=== PATIENT | female | born 1990 | race Caucasian/White ===

== ENCOUNTER 2017-03-23 18:30 | Emergency (ER) | payer OTHER ==
[2017-03-23 19:44] VITALS: BP 142/62
--- NOTE | 2017-03-23 20:18 | UC ---
Throat Pain/Nasal Gurdeep HPI - HPI Summary HPI Summary: ONE WEEK OF SINUS CONGESTION AND FACIAL PRESSURE, BILATERAL EAR PAIN FOR THREE DAYS. FEVER. - History of Current Complaint Chief Complaint: UCGeneralIllness Stated Complaint: SINUSES/EAR Time Seen by Provider: 03/23/17 19:40 Hx Obtained From: Patient, Family/Management Consultant Hx Last Menstrual Period: 03/03/17 Onset/Duration: Gradual Onset, Lasting Weeks, Still Present Severity: Moderate Cough: None Associated Signs & Symptoms: Positive: Hoarseness, Sinus Discomfort, Nasal Discharge, Fever - Epiglottits Risk Factors Epiglottis Risk Factors: Negative - Allergies/Home Medications Allergies/Adverse Reactions: Allergies Allergy/AdvReac Type Severity Reaction Status Date / Time seasonal Allergy Congestion Uncoded 03/23/17 19:44 Home Medications: Home Medications guaiFENesin ER TAB [Mucinex*] 600 mg PO BID 03/23/17 [History Confirmed 03/23/17 ] PMH/Surg Hx/FS Hx/Imm Hx Previously Healthy: Yes Cardiovascular History Of: Reports: Cardiac Disorders - PVC's- confirmed Respiratory History Of: Reports: Asthma - Surgical History Surgical History: Yes Surgery Procedure, Year, and Place: Arthoscopy of ankle - Family History Known Family History: Positive: Respiratory Disease - Social History Occupation: Disabled Lives: With Family Alcohol Use: Rare Substance Use Type: None Smoking Status (MU): Former Smoker Type: Cigarettes Amount Used/How Often: 4-5 cigarettes daily Length of Time of Smoking/Using Tobacco: 5 yrs Have You Smoked in the Last Year: Yes When Did the Patient Quit Smoking/Using Tobacco: March 2016 Review of Systems Constitutional: Fever, Fatigue Skin: Negative Eyes: Negative ENT: Ear Ache Respiratory: Cough Cardiovascular: Negative Gastrointestinal: Negative Genitourinary: Negative Motor: Negative Neurovascular: Negative Musculoskeletal: Negative Neurological: Negative Psychological: Negative All Other Systems Reviewed And Are Negative: Yes Physical Exam Triage Information Reviewed: Yes Appearance: Well-Appearing, No Pain Distress, Well-Nourished Vital Signs: Initial Vital Signs Temp 98.1 F 03/23/17 19:40 Pulse 93 03/23/17 19:40 Resp 18 03/23/17 19:40 BP 142/62 03/23/17 19:40 Pulse Ox 100 03/23/17 19:40 Vital Signs Reviewed: Yes Eye Exam: Normal ENT: Positive: Hearing grossly normal, Nasal congestion, TM bulging, TM dull Dental Exam: Normal Neck exam: Normal Neck: Positive: Supple, Nontender, No Lymphadenopathy Respiratory Exam: Normal Respiratory: Positive: Chest non-tender, Lungs clear, Normal breath sounds, No respiratory distress, No accessory muscle use Cardiovascular Exam: Normal Cardiovascular: Positive: RRR, No Murmur, Pulses Normal Abdominal Exam: Normal Musculoskeletal Exam: Normal Musculoskeletal: Positive: Strength Intact, ROM Intact, No Edema Neurological Exam: Normal Psychological Exam: Normal Psychological: Positive: Normal Response To Family Skin Exam: Normal Throat Pain/Nasal Course/Dx - Differential Dx/Diagnosis Differential Diagnosis/HQI/PQRI: Pharyngitis, Sinusitis, Tonsillitis, URI Provider Diagnoses: SINUSITIS Discharge - Discharge Plan Condition: Stable Disposition: HOME Prescriptions: Amoxicillin/Clavulanate TAB* [Augmentin TAB 875*] 875 mg PO BID #20 tab Benzonatate CAP* [Tessalon 100 MG CAP*] 100 mg PO TID PRN #15 cap PRN Reason: Cough Patient Education Materials: Sinusitis (ED) Referrals: Laurita Reyes MD [Primary Care Provider] -
== END 2017-03-23 20:17 | disposition home or self-care (01) ==
LOC: UCCORT 18:30
DX: J32.9 Chronic sinusitis, unspecified (principal); I49.3 Ventricular premature depolarization; J45.909 Unspecified asthma, uncomplicated; Z87.891 Personal history of nicotine dependence
CPT/HCPCS: 99212; G0463

== ENCOUNTER 2018-01-22 13:56 | Emergency (ER) | payer OTHER ==
--- NOTE | 2018-01-22 14:39 | UC ---
Throat Pain/Nasal Gurdeep HPI - HPI Summary HPI Summary: Pt presents with sore throat, sinus pain/pressure/congestion, and dry cough for 10 days. Yesterday had a fever of 100.4F and took ibuprofen with good relief. Denies SOB, chest pain, abdominal pain, n/v/d/c - History of Current Complaint Stated Complaint: RESPIRATORY, SINUS Time Seen by Provider: 01/22/18 14:39 Hx Obtained From: Patient Hx Last Menstrual Period: 03/03/17 Onset/Duration: Gradual Onset Severity: Mild Pain Intensity: 4 Pain Scale Used: 0-10 Numeric Cough: Nonproductive - Allergies/Home Medications Allergies/Adverse Reactions: Allergies Allergy/AdvReac Type Severity Reaction Status Date / Time seasonal Allergy Congestion Uncoded 01/22/18 14:44 PMH/Surg Hx/FS Hx/Imm Hx Previously Healthy: Yes Respiratory History: Asthma GI/ History: Gastroesophageal Reflux Psychological History: Anxiety, Depression - Surgical History Surgical History: Yes Surgery Procedure, Year, and Place: Arthoscopy of ankle - Family History Known Family History: Positive: Respiratory Disease - Social History Occupation: Employed Full-time Lives: With Family Alcohol Use: Rare Substance Use Type: None Smoking Status (MU): Former Smoker Type: Cigarettes Amount Used/How Often: 4-5 cigarettes daily Length of Time of Smoking/Using Tobacco: 5 yrs When Did the Patient Quit Smoking/Using Tobacco: March 2016 Review of Systems Constitutional: Fever Skin: Negative Eyes: Negative ENT: Nasal Discharge, Sinus Congestion, Sinus Pain/Tenderness Respiratory: Cough Cardiovascular: Negative Gastrointestinal: Negative Neurovascular: Negative Neurological: Negative Psychological: Negative All Other Systems Reviewed And Are Negative: Yes Physical Exam - Summary Physical Exam Summary: GENERAL: Obese. NAD. HEENT: NC/AT. Conjunctiva clear without inflammation or discharge. TMs intact , no bulging, erythema, or edema. Nasal mucosa mildly swollen and erythematous with clear discharge. TTP maxillary and frontal sinus. Posterior oropharynx without exudates, erythema, or tonsillar enlargement. Uvula midline. NECK: Supple without lymphadenopathy CHEST: CTAB. No r/r/w. No accessory muscle use. Breathing comfortably and in no distress. CV: RRR. Without m/r/g. Pulses intact. SKIN: No rash or erythema noted. NEURO: Alert. CN II-XII grossly intact. PSYCH: Age appropriate behavior. Triage Information Reviewed: Yes Throat Pain/Nasal Course/Dx - Course Course Of Treatment: Sinusitis - amoxicillin - Differential Dx/Diagnosis Provider Diagnoses: Sinusitis Discharge - Sign-Out/Discharge Documenting (check all that apply): Discharge - Discharge Plan Condition: Stable Disposition: HOME Prescriptions: Amoxicillin PO (*) [Amoxicillin 500 MG CAP*] 500 mg PO Q12H #20 cap Patient Education Materials: Sinusitis (ED) Referrals: Laurita Reyes MD [Primary Care Provider] - Additional Instructions: If you develop a fever, shortness of breath, chest pain, new or worsening symptoms - please call your PCP or go to the ED. Your blood pressure was high at todays visit. Please see your primary provider within 4 weeks for recheck and re-evaluation. - Billing Disposition and Condition Condition: STABLE Disposition: HOME
--- OUTSIDE RECORDS SUMMARY | 2018-01-22 14:42 | XMS REPORT ---
:1990 External Reference #:[id number] Author Organization [facility] Address [address], [address] [place] [address] Phone [phone] Care Team Providers Name Role Phone Carmen Hay DO Care Team Information Stallion Manager Unavailable Laurita Reyes MD Primary Care Physician Unavailable Payers Type Date Identification Numbers Payment Provider Subscriber Commercial Policy Number: [id number] [facility] Nemo Busch PayID: [id number] [address] [place] [address] Medicaid Policy Number: [id number] Medicaid Nemo Busch PayID: [id number] [address] [place] [address] Workers Compensation Onset: 2009 PayID: [id number] Emiliano Dhillon [address] [place] [address] Problems Date Description Provider Status Onset: 06/17/2015 Gastroesophageal reflux disease Yuliya Chapa M.D. Active Onset: 06/17/2015 Mild recurrent major depression Yuliya Chapa M.D. Active Onset: 06/17/2015 Obesity Yluiya Chapa M.D. Active Onset: 06/17/2015 Disorder of joint of ankle and/or Yuliya Chapa M.D. Active foot Onset: 06/17/2015 Extrinsic asthma without status Yuliya Chapa M.D. Active asthmaticus Onset: 05/13/2017 Allergic rhinitis Laurita Reyes MD Active Onset: 09/28/2017 Gallstone Nathanael Cantu MD,FACS Active Onset: 10/05/2017 Preoperative cardiovascular Neo Aaron M.D., Active examination FACC Onset: 10/05/2017 Morbid obesity Neo Aaron M.D., Active FACC Onset: 10/05/2017 Pre-excitation syndrome Neo Aaron M.D., Active FACC Onset: 06/17/2015 Breast lump Yuliya Chapa M.D. Inactive Inactive: 09/25/2017 Onset: 06/17/2015 Adult health examination Yuliya Chapa M.D. Inactive Inactive: 09/25/2017 Onset: 07/15/2015 Dysphagia Yuri Birch M.D. Inactive Inactive: 09/25/2017 Onset: 07/15/2015 Other fecal abnormalities Yuri Birch M.D. Inactive Inactive: 09/25/2017 Family History Date Family Member(s) Problem(s) Comments Father Unknown Mother PVC's First Brother Leukemia First Brother due to Heart Disease () - arrhythmias- from accident First Sister Heart Disease arrhythmias Grandfather Stroke Aunt Breast Cancer Aunt Leukemia Social History Type Date Description Comments Marital Status Single Lives With Sister Diet low carb Occupation Sales Retail Work Status Currently Working ADL's/IADL's Independent with all ADL's Cigarette Use Quit MARCH 2016 ETOH Use Denies alcohol use Smoking Patient does not smoke Recreational Drug Use Denies Drug Use Smoking Patient is a current smoker, smokes every day Daily Caffeine Current Caffeine User 4 cups daily Exercise Type/Frequency Exercises regularly Allergies, Adverse Reactions, Alerts Date Description Reaction Status Severity Comments 11/24/2009 NKDA active Medications Medication Date Status Form Strength Qnty SIG Indications Ordering Provider Prozac 07/29 Active Capsules 40mg 30cap take one Laurita /2016 s tab a day MD Amy Fluticasone 02/08 Active Suspension 50mcg/Act 9.900 spray 1-2 Laurita Propionate ml sprays in jackie Reyes MD nostril once every evening Albuterol Sulfate 00/ Active Inhaler a/d Unknown /0000 Ibuprofen 00 Active Tablets 800mg prn Unknown /0000 Famotidine Active Tablets 20mg take 1 Unknown /0000 tablet by mouth twice a day Reglan Active Tablets 10mg 30tab 1 tab by Laurita s mouth once Amy, a day as MD needed Vitamin D Active Tablets 5000Units 1 by mouth Unknown every day Lortab 10/26 Hx Tablets 5-325mg 20tab 1 tablet K80.20 Nathanael s as needed Alondra, - for pain ,FACS 11/14 every hours Prochlorperazine 09/21 Hx Tablets 5mg 30tab 1 tab by Laurita Maleate s mouth Amy, three MD times a day Hydrocodone-Aceta 09/21 Hx Tablets 5-325mg 12tab 1 tab Laurita minophen s every 8 Amy, - hours as 10/26 needed pain Augmentin 09/21 Hx Tablets 875-125mg 14tab 1 tab by Laurita s mouth Amy, - q12hrs for 09/28 Ortho Tri-Cyclen 05/13 Hx Tablets 0.18/0.21 168ta 1 tab by Laurita 5/0.25 bs mouth Amy, mg-25 mcg every day MD Garcia 01/18 Hx Capsules 20mg 30cap 1 by mouth Laurita s every day Amy, - 07/29 Prozac 12/24 Hx Capsules 40mg 30cap take one Tadeus E. s pill each Joseph, - day 01/18 Maalox Regular 07/15 Hx Suspension 200-200-2 1bott 20 K21.9 Yuri Strength /2014 0mg/5ML le milliliter Vatra, s by mouth M.D. every 2h as needed heartburn Pantoprazole 07/[address] 40mg 180ta 1 by mouth K21.9 Yuri Sodium /2014 bs twice a Vatra, day M.D. Prozac 06/25 Hx Capsules 20mg 60cap take 1 a Tadeus E. s pill Joseph, - bymouth 12/24 day Clonidine HCL 06/25 Hx Tablets 0.1mg 30tab 1 by mouth Tadeus E. s every day Joseph, at bedtime Chantix 06/25 Hx Tablets 0.5mg 30tab Take 1/2 a Tadeus E. s pill each Joseph, lorraine for 4 MD days then take 1/2 a pill twice a day there after Chantix 06/25 Hx Tablets 1mg 30tab take one Tadeus E. s pill each MD Joseph Omeprazole 06/[address] 40mg 30cap take 1 K21.9 s capsule by Sammi, - mouth M.D. 07/15 before eating Tetanus/Diphtheri 06/17 Hx Suspension 2-2LF/0.5 1unit 0.5 V70.0 Yuliya ML s milliliter Sammi, Toxoids-Adsorbed - s M.D. Adult 06/24 intramuscu lar once Sucralfate 06/17 Hx Tablets 1gm 112ta 1 by mouth K21.9 Yuliya bs four times Sammi, - a day M.D. 07/15 Nexium 00 Hx Unknown /0000 - 06/16 Sucralfate 00 Hx Tablets 1gm 1 tab by Unknown /0000 mouth qid as needed reflux Famotidine 00 Hx Tablets 20mg take 1 Unknown /0000 tablet by - mouth qday 07/15 Zofran Odt 00 Hx Tablets 4mg 1 sl every Unknown /0000 Dispers 6 hour as needed Immunizations CPT Code Status Date Vaccine Lot # [id number] Given 06/17/2015 Tdap injection [id number] Vital Signs Date Vital Result Comment 01/05/2018 BP Systolic 147 mmHg Nida 127/86 BP Diastolic 91 mmHg Nida 127/86 Heart Rate 76 /min Respiratory Rate 16 /min Height 71 inches 5'11" Weight 384.31 lb BMI (Body Mass Index) 53.6 kg/m2 BSA (Body Surface Area) 2.78 m2 Godfrey body weight in kilograms 70 O2 % BldC Oximetry 97 % 11/22/2017 BP Systolic Sitting Right Arm 129 mmHg BP Diastolic Sitting Right Arm 88 mmHg Heart Rate 72 /min Respiratory Rate 16 /min Height 71 inches 5'11" Weight 380.00 lb BMI (Body Mass Index) 53.0 kg/m2 BSA (Body Surface Area) 2.77 m2 Godfrey body weight in kilograms 70 11/14/2017 Height 71 inches 5'11" Weight 385.00 lb BMI (Body Mass Index) 53.7 kg/m2 BSA (Body Surface Area) 2.79 m2 Godfrey body weight in kilograms 70 10/26/2017 BP Systolic 132 mmHg BP Diastolic 88 mmHg Body Temperature 98.1 F Height 71 inches 5'11" Weight 385.00 lb BMI (Body Mass Index) 53.7 kg/m2 BSA (Body Surface Area) 2.79 m2 Godfrey body weight in kilograms 70 10/05/2017 BP Systolic Sitting Left Arm 122 mmHg BP Diastolic Sitting Left Arm 82 mmHg Heart Rate 83 /min Respiratory Rate 18 /min Height 71 inches 5'11" Weight 375.00 lb BMI (Body Mass Index) 52.3 kg/m2 BSA (Body Surface Area) 2.75 m2 Godfrey body weight in kilograms 70 09/28/2017 BP Systolic 128 mmHg BP Diastolic 88 mmHg Height 71 inches 5'11" Weight 383.00 lb BMI (Body Mass Index) 53.4 kg/m2 BSA (Body Surface Area) 2.78 m2 Godfrey body weight in kilograms 70 09/21/2017 BP Systolic Sitting Right Arm 134 mmHg BP Diastolic Sitting Right Arm 82 mmHg Body Temperature 97.4 F Heart Rate 86 /min Respiratory Rate 18 /min Height 71 inches 5'11" Weight 382.00 lb BMI (Body Mass Index) 53.3 kg/m2 BSA (Body Surface Area) 2.78 m2 Godfrey body weight in kilograms 70 O2 % BldC Oximetry 97 % 05/13/2017 BP Systolic Sitting Left Arm 124 mmHg BP Diastolic Sitting Left Arm 90 mmHg Body Temperature 96.8 F Heart Rate 66 /min Respiratory Rate 18 /min Height 71 inches 5'11" Weight 374.00 lb BMI (Body Mass Index) 52.2 kg/m2 BSA (Body Surface Area) 2.75 m2 Godfrey body weight in kilograms 70 O2 % BldC Oximetry 97 % ra 02/08/2017 BP Systolic Sitting Right Arm 130 mmHg thigh cuff. BP Diastolic Sitting Right Arm 96 mmHg thigh cuff. 02/08/2017 BP Systolic 128 mmHg BP Diastolic 98 mmHg Heart Rate 76 /min Respiratory Rate 16 /min Height 71 inches 5'11" Weight 372.00 lb BMI (Body Mass Index) 51.9 kg/m2 BSA (Body Surface Area) 2.74 m2 Godfrey body weight in kilograms 70 O2 % BldC Oximetry 96 % 07/20/2016 BP Systolic Sitting Right Arm 144 mmHg BP Diastolic Sitting Right Arm 88 mmHg Heart Rate 72 /min Respiratory Rate 16 /min Weight 350.00 lb 07/15/2015 BP Systolic 120 mmHg BP Diastolic 70 mmHg Heart Rate 72 /min Height 70 inches 5'10" Weight 353.00 lb BMI (Body Mass Index) 50.6 kg/m2 BSA (Body Surface Area) 2.66 m2 06/25/2015 BP Systolic 132 mmHg BP Diastolic 78 mmHg Heart Rate 91 /min Height 70 inches 5'10" Weight 338.00 lb BMI (Body Mass Index) 48.5 kg/m2 BSA (Body Surface Area) 2.61 m2 O2 % BldC Oximetry 96 % Ra 06/17/2015 BP Systolic 128 mmHg BP Diastolic 78 mmHg Heart Rate 90 /min Respiratory Rate 18 /min Height 70 inches 5'10" Weight 336.00 lb BMI (Body Mass Index) 48.2 kg/m2 BSA (Body Surface Area) 2.60 m2 O2 % BldC Oximetry 97 % 11/19/2009 Height 70 inches 5'10" Weight 300.00 lb BMI (Body Mass Index) 43.0 kg/m2 Height Percentile 97 % Weight Percentile >97th Results Test Date Test Result H/L Range Note Ua RFX Micro & Culture II 10/25/2017 Urine Color YELLOW Yellow 1 Urine Clarity CLEAR Clear 1 Urine Glucose - Dipstick NEGATIVE mg/dL Negative 1 Urine Bilirubin - Dipstick NEGATIVE Negative 1 Urine Ketone NEGATIVE mg/dL Negative 1 Urine Specific [place] >=1.030 1.010-1.030 1 Urine Blood NEGATIVE Negative 1 Urine PH 5.5 Low 6.5-7.5 1 Urine Protein - Dipstick NEGATIVE mg/dL Negative 1 Urine Urobilinogen - Dipstick 0.2 E.U./dL 0.2-1.0 1 Urine Nitrite - Dipstick NEGATIVE Negative 1 Urine Leuk Esterase TRACE Negative 1 Urine RBC 0-2 rbc/hpf 0-2 1 Urine WBC 0-2 wbc/hpf 0-7 1 Urine Epithelial Cells MANY /lpf None Seen 1, 2 Urine Uric Acid Crystals FEW None Seen 1 Urine Bacteria FEW None Seen 1 Urine Amorph Sediment VERY FEW Negative 1 Source: URINE, CLEAN CAT <SEE NOTE> 1, 3 CBS W/Automated Diff 10/25/2017 White Blood Count 8.8 K/uL 3.1-10.7 1 Red Blood Count 4.27 M/uL 3.90-5.40 1 Hemoglobin 13.6 gm/dL 11.6-15.8 1 Hematocrit 38.6 % 36.0-46.1 1 Mean Cell Volume 90.4 fl 80.9-99.0 1 Mean Corpuscular HGB 31.9 pg 25.9-32.7 1 Mean Corpuscular HGB Conc 35.2 g/dL High 30.8-34.3 1 Platelet Count 222 K/uL 155-360 1 Red Cell Distri Width SD 41.0 fl 3-47 1 Red Cell Distri Width %CV 12.7 % 11.7-14.4 1 Mean Platelet Volume 10.5 fL 8.9-12.4 1 Neut% 60.1 % 40.4-72.8 1 Lymph % 27.4 % 20.0-42.0 1 [place] % 9.7 % 4.3-13.2 1 Eo% 2.6 % 0.0-6.6 1 Bas% 0.2 % 0.0-1.1 1 Neut# 5.31 K/uL 1.8-7.0 1 Lymph # 2.42 K/uL 1.0-4.0 1 [place] # 0.86 K/uL 0.3-0.9 1 Eos # 0.23 K/uL 0.0-0.5 1 Baso # 0.02 K/uL 0.0-0.1 1 Comprehensive Metabolic Panel 10/25/2017 Glucose 87 mg/dL 74-106 1 BUN 12 mg/dL 7-18 1 Creatinine 0.8 mg/dL 0.6-1.3 1 Glom Filtration Rate, Estimate >60 mL/min >60 1 If >60 mL/min >60 1, 4 BUN/Creat 15.0 ratio 1 Sodium 143 mmol/L 136-145 1 Potassium 3.7 mmol/L 3.5-5.1 1 Chloride 106 mmol/L 98-107 1 Carbon Dioxide 28 mmol/L 21-32 1 Anion Gap 9 mEq/L 8-16 1 Calcium 8.8 mg/dL 8.5-10.1 1 Total Protein 7.1 g/dL 6.4-8.2 1 Albumin 3.6 g/dL 3.4-5.0 1 Globulin 3.5 g/dL 1.9-4.3 1 Alb/Glob 1.0 ratio 1 Bilirubin,Total 0.2 mg/dL 0.2-1.0 1 Sgot/Ast 14 U/L Low 15-37 1, 5 SGPT/Alt 21 U/L 12-78 1 Alkaline Phosphatase 78 U/L 45-117 1 Laboratory test finding 10/25/2017 Lipase 192 U/L 56-289 1 Laboratory test finding 10/06/2017 Urine HCG (Qualitative) NEGATIVE Negative 6, 7 Lactic Acid 10/04/2017 Lactic Acid 0.8 mmol/L 0.4-1.9 8 Lab Reflex >2.0 for Sepsis? N 8 CBS W/Automated Diff 10/04/2017 White Blood Count 6.7 K/uL 3.1-10.7 8 Red Blood Count 4.77 M/uL 3.90-5.40 8 Hemoglobin 15.1 gm/dL 11.6-15.8 8 Hematocrit 42.2 % 36.0-46.1 8 Mean Cell Volume 88.5 fl 80.9-99.0 8 Mean Corpuscular HGB 31.7 pg 25.9-32.7 8 Mean Corpuscular HGB Conc 35.8 g/dL High 30.8-34.3 8 Platelet Count 221 K/uL 150-400 8 Red Cell Distri Width SD 40.7 fl 3-47 8 Red Cell Distri Width %CV 12.8 % 11.7-14.4 8 Mean Platelet Volume 10.5 fL 8.9-12.4 8 Neut% 61.7 % 40.4-72.8 8 Lymph % 28.7 % 20.0-42.0 8 [place] % 8.0 % 4.3-13.2 8 Eo% 1.5 % 0.0-6.6 8 Bas% 0.1 % 0.0-1.1 8 Neut# 4.14 K/uL 1.8-7.0 8 Lymph # 1.93 K/uL 1.0-4.0 8 [place] # 0.54 K/uL 0.3-0.9 8 Eos # 0.10 K/uL 0.0-0.5 8 Baso # 0.01 K/uL 0.0-0.1 8 Comprehensive Metabolic Panel 10/04/2017 Glucose 89 mg/dL 74-106 8 BUN 14 mg/dL 7-18 8 Creatinine 1.0 mg/dL 0.6-1.3 8 Glom Filtration Rate, Estimate >60 mL/min >60 8 If >60 mL/min >60 8, 9 BUN/Creat 14.0 ratio 8 Sodium 137 mmol/L 136-145 8 Potassium 3.7 mmol/L 3.5-5.1 8 Chloride 102 mmol/L 98-107 8 Carbon Dioxide 27 mmol/L 21-32 8 Anion Gap 8 mEq/L 8-16 8 Calcium 9.1 mg/dL 8.5-10.1 8 Total Protein 8.1 g/dL 6.4-8.2 8 Albumin 4.0 g/dL 3.4-5.0 8 Globulin 4.1 g/dL 1.9-4.3 8 Alb/Glob 1.0 ratio 8 Bilirubin,Total 0.4 mg/dL 0.2-1.0 8 Sgot/Ast 16 U/L 15-37 8 SGPT/Alt 25 U/L 12-78 8 Alkaline Phosphatase 50 U/L 45-117 8 Laboratory test finding 10/04/2017 Lipase 124 U/L 56-289 8 Troponin-I < 0.015 ng/mL 8, 10 Comprehensive Metabolic Panel 09/29/2017 Glucose 90 mg/dL 74-106 11 BUN 11 mg/dL 7-18 11 Creatinine 0.8 mg/dL 0.6-1.3 11 Glom Filtration Rate, Estimate >60 mL/min >60 11 If >60 mL/min >60 11, 12 BUN/Creat 13.7 ratio 11 Sodium 140 mmol/L 136-145 11 Potassium 3.5 mmol/L 3.5-5.1 11 Chloride 105 mmol/L 98-107 11 Carbon Dioxide 28 mmol/L 21-32 11 Anion Gap 7 mEq/L Low 8-16 11 Calcium 8.7 mg/dL 8.5-10.1 11 Total Protein 7.5 g/dL 6.4-8.2 11 Albumin 3.7 g/dL 3.4-5.0 11 Globulin 3.8 g/dL 1.9-4.3 11 Alb/Glob 1.0 ratio 11 Bilirubin,Total 0.2 mg/dL 0.2-1.0 11 Sgot/Ast 23 U/L 15-37 11 SGPT/Alt 31 U/L 12-78 11 Alkaline Phosphatase 59 U/L 45-117 11 CBS W/Automated Diff 09/29/2017 White Blood Count 9.2 K/uL 3.1-10.7 11 Red Blood Count 4.26 M/uL 3.90-5.40 11 Hemoglobin 13.3 gm/dL 11.6-15.8 11 Hematocrit 38.3 % 36.0-46.1 11 Mean Cell Volume 89.9 fl 80.9-99.0 11 Mean Corpuscular HGB 31.2 pg 25.9-32.7 11 Mean Corpuscular HGB Conc 34.7 g/dL High 30.8-34.3 11 Platelet Count 239 K/uL 155-360 11 Red Cell Distri Width SD 40.3 fl 3-47 11 Red Cell Distri Width %CV 12.7 % 11.7-14.4 11 Mean Platelet Volume 10.4 fL 8.9-12.4 11 Neut% 62.8 % 40.4-72.8 11 Lymph % 29.0 % 20.0-42.0 11 [place] % 7.1 % 4.3-13.2 11 Eo% 1.0 % 0.0-6.6 11 Bas% 0.1 % 0.0-1.1 11 Neut# 5.78 K/uL 1.8-7.0 11 Lymph # 2.67 K/uL 1.0-4.0 11 [place] # 0.65 K/uL 0.3-0.9 11 Eos # 0.09 K/uL 0.0-0.5 11 Baso # 0.01 K/uL 0.0-0.1 11 Laboratory test 09/29/2017 Lipase 126 U/L 56-289 11 finding Blood Culture 09/29/2017 Blood Culture NO GROWTH: FINAL Aerobic <SEE NOTE> Blood Culture Anaerobic NO GROWTH: FINAL <SEE NOTE> Laboratory test finding 09/29/2017 C. Difficile Toxin B By NEGATIVE 11 PCR Lactic Acid 09/29/2017 Lactic Acid 1.1 mmol/L 0.4-1.9 11 Lab Reflex >2.0 for Sepsis? Y 11 Ua RFX Micro & Culture II 09/27/2017 Urine Color YELLOW Yellow 15 Urine Clarity CLEAR Clear 15 Urine Glucose - Dipstick NEGATIVE mg/dL Negative 15 Urine Bilirubin - Dipstick NEGATIVE Negative 15 Urine Ketone TRACE mg/dL High Negative 15 Urine Specific [place] 1.025 1.010-1.030 15 Urine Blood NEGATIVE Negative 15 Urine PH 6.5 6.5-7.5 15 Urine Protein - Dipstick TRACE mg/dL Negative 15 Urine Urobilinogen - Dipstick 1.0 E.U./dL 0.2-1.0 15 Urine Nitrite - Dipstick NEGATIVE Negative 15 Urine Leuk Esterase NEGATIVE Negative 15 Source: URINE, CLEAN CAT <SEE 15, 16 NOTE> Laboratory test finding 09/27/2017 Lipase 106 U/L 56-289 15 HCG,Serum (Qualitative) NEGATIVE (Negative) 15, 17 Comprehensive Metabolic Panel 09/27/2017 Glucose 103 mg/dL 74-106 15 BUN 12 mg/dL 7-18 15 Creatinine 0.8 mg/dL 0.6-1.3 15 Glom Filtration Rate, Estimate >60 mL/min >60 15 If >60 mL/min >60 15, 18 BUN/Creat 15.0 ratio 15 Sodium 141 mmol/L 136-145 15 Potassium 3.7 mmol/L 3.5-5.1 15 Chloride 106 mmol/L 98-107 15 Carbon Dioxide 27 mmol/L 21-32 15 Anion Gap 8 mEq/L 8-16 15 Calcium 8.6 mg/dL 8.5-10.1 15 Total Protein 6.9 g/dL 6.4-8.2 15 Albumin 3.5 g/dL 3.4-5.0 15 Globulin 3.4 g/dL 1.9-4.3 15 Alb/Glob 1.0 ratio 15 Bilirubin,Total 0.3 mg/dL 0.2-1.0 15 Sgot/Ast 21 U/L 15-37 15 SGPT/Alt 26 U/L 12-78 15 Alkaline Phosphatase 52 U/L 45-117 15 CBS W/Automated Diff 09/27/2017 White Blood Count 8.3 K/uL 3.1-10.7 15 Red Blood Count 4.13 M/uL 3.90-5.40 15 Hemoglobin 13.0 gm/dL 11.6-15.8 15 Hematocrit 36.9 % 36.0-46.1 15 Mean Cell Volume 89.3 fl 80.9-99.0 15 Mean Corpuscular HGB 31.5 pg 25.9-32.7 15 Mean Corpuscular HGB Conc 35.2 g/dL High 30.8-34.3 15 Platelet Count 233 K/uL 150-400 15 Red Cell Distri Width SD 39.8 fl 3-47 15 Red Cell Distri Width %CV 12.6 % 11.7-14.4 15 Mean Platelet Volume 10.1 fL 8.9-12.4 15 Neut% 65.6 % 40.4-72.8 15 Lymph % 25.9 % 20.0-42.0 15 [place] % 6.8 % 4.3-13.2 15 Eo% 1.6 % 0.0-6.6 15 Bas% 0.1 % 0.0-1.1 15 Neut# 5.47 K/uL 1.8-7.0 15 Lymph # 2.16 K/uL 1.0-4.0 15 [place] # 0.57 K/uL 0.3-0.9 15 Eos # 0.13 K/uL 0.0-0.5 15 Baso # 0.01 K/uL 0.0-0.1 15 Laboratory test finding 09/20/2017 Lipase 153 U/L 56-289 19 Comprehensive Metabolic Panel 09/20/2017 Glucose 124 mg/dL High 74-106 19 BUN 11 mg/dL 7-18 19 Creatinine 1.0 mg/dL 0.6-1.3 19 Glom Filtration Rate, Estimate >60 mL/min >60 19 If >60 mL/min >60 19, 20 BUN/Creat 11.0 ratio 19 Sodium 141 mmol/L 136-145 19 Potassium 3.4 mmol/L Low 3.5-5.1 19 Chloride 106 mmol/L 98-107 19 Carbon Dioxide 27 mmol/L 21-32 19 Anion Gap 8 mEq/L 8-16 19 Calcium 8.6 mg/dL 8.5-10.1 19 Total Protein 7.3 g/dL 6.4-8.2 19 Albumin 3.5 g/dL 3.4-5.0 19 Globulin 3.8 g/dL 1.9-4.3 19 Alb/Glob 0.9 ratio 19 Bilirubin,Total 0.4 mg/dL 0.2-1.0 19 Sgot/Ast 14 U/L Low 15-37 19, 21 SGPT/Alt 17 U/L 12-78 19 Alkaline Phosphatase 55 U/L 45-117 19 CBS W/Automated Diff 09/20/2017 White Blood Count 8.7 K/uL 3.1-10.7 19 Red Blood Count 4.24 M/uL 3.90-5.40 19 Hemoglobin 13.4 gm/dL 11.6-15.8 19 Hematocrit 38.3 % 36.0-46.1 19 Mean Cell Volume 90.3 fl 80.9-99.0 19 Mean Corpuscular HGB 31.6 pg 25.9-32.7 19 Mean Corpuscular HGB Conc 35.0 g/dL High 30.8-34.3 19 Platelet Count 257 K/uL 150-400 19 Red Cell Distri Width SD 40.9 fl 3-47 19 Red Cell Distri Width %CV 12.6 % 11.7-14.4 19 Mean Platelet Volume 9.6 fL 8.9-12.4 19 Neut% 66.9 % 40.4-72.8 19 Lymph % 24.5 % 20.0-42.0 19 [place] % 6.9 % 4.3-13.2 19 Eo% 1.6 % 0.0-6.6 19 Bas% 0.1 % 0.0-1.1 19 Neut# 5.80 K/uL 1.8-7.0 19 Lymph # 2.12 K/uL 1.0-4.0 19 [place] # 0.60 K/uL 0.3-0.9 19 Eos # 0.14 K/uL 0.0-0.5 19 Baso # 0.01 K/uL 0.0-0.1 19 Laboratory test finding 09/19/2017 Lipase 378 U/L High 56-289 22 CBS W/Automated Diff 09/19/2017 White Blood Count 7.9 K/uL 3.1-10.7 22 Red Blood Count 4.57 M/uL 3.90-5.40 22 Hemoglobin 14.1 gm/dL 11.6-15.8 22 Hematocrit 41.1 % 36.0-46.1 22 Mean Cell Volume 89.9 fl 80.9-99.0 22 Mean Corpuscular HGB 30.9 pg 25.9-32.7 22 Mean Corpuscular HGB Conc 34.3 g/dL 30.8-34.3 22 Platelet Count 262 K/uL 150-400 22 Red Cell Distri Width SD 41.0 fl 3-47 22 Red Cell Distri Width %CV 12.7 % 11.7-14.4 22 Mean Platelet Volume 9.9 fL 8.9-12.4 22 Neut% 64.1 % 40.4-72.8 22 Lymph % 27.7 % 20.0-42.0 22 [place] % 6.6 % 4.3-13.2 22 Eo% 1.3 % 0.0-6.6 22 Bas% 0.3 % 0.0-1.1 22 Neut# 5.04 K/uL 1.8-7.0 22 Lymph # 2.18 K/uL 1.0-4.0 22 [place] # 0.52 K/uL 0.3-0.9 22 Eos # 0.10 K/uL 0.0-0.5 22 Baso # 0.02 K/uL 0.0-0.1 22 Laboratory test finding 06/13/2015 D-Dimer, Quantitative 0.25 ug/mL 23 CBC W/Automated Diff 06/13/2015 White Blood Count 9.0 K/uL 3.1-10.7 Red Blood Count 4.61 M/uL 3.90-5.40 Hemoglobin 14.6 gm/dL 11.6-15.8 Hematocrit 41.1 % 36.0-46.1 Mean Cell Volume 89.2 fl 80.9-99.0 Mean Corpuscular HGB 31.7 pg 25.9-32.7 Mean Corpuscular HGB Conc 35.5 g/dL High 30.8-34.3 Platelet Count 246 K/uL 155-360 Red Cell Distri Width SD 41.3 fl 3-47 Red Cell Distri Width %CV 12.8 % 11.7-14.4 Mean Platelet Volume 11.0 fL 8.9-12.4 Neut% 62.0 % 40.4-72.8 Lymph % 29.0 % 17.0-46.1 [place] % 6.4 % 4.3-13.2 Eo% 2.4 % 0.0-6.6 Bas% 0.2 % 0.0-1.1 Neut# 5.58 K/uL 1.0-7.0 Lymph # 2.62 K/uL 1.8-7.0 [place] # 0.58 K/uL 0.3-0.9 Eos # 0.22 K/uL 0.0-0.5 Baso # 0.02 K/uL 0.0-0.1 Laboratory test finding 06/13/2015 Lipase 151 U/L 73-393 CK 101 U/L 26-192 Troponin-I < 0.015 ng/mL 24 HCG,Serum (Qualitative) NEGATIVE (Negative) Basic Metabolic Panel 06/13/2015 Glucose 112 mg/dL High 74-106 BUN 10 mg/dL 7-18 Creatinine 0.9 mg/dL 0.6-1.3 Glom Filtration Rate, Estimate >60 mL/min >60 If >60 mL/min >60 25 BUN/Creat 11.1 ratio Sodium 140 mmol/L 136-145 Potassium 3.6 mmol/L 3.5-5.1 Chloride 105 mmol/L 98-107 Carbon Dioxide 25 mmol/L 21-32 Anion Gap 10 mEq/L 8-16 Calcium 9.4 mg/dL 8.5-10.1 Liver Function Tests 06/13/2015 Total Protein 7.6 g/dL 6.4-8.2 Albumin 3.7 g/dL 3.4-5.0 Globulin 3.9 g/dL 1.9-4.3 Alb/Glob 0.9 ratio Bilirubin,Total 0.4 mg/dL 0.2-1.0 Bilirubin,Direct 0.1 mg/dL 0.0-0.2 Bilirubin,Indirect 0.3 mg/dL 0.0-0.9 Sgot/Ast 18 U/L 15-37 SGPT/Alt 23 U/L 12-78 Alkaline Phosphatase 58 U/L 45-117 Urine Screen 06/13/2015 Urine Color YELLOW Yellow Urine Clarity CLEAR Clear Urine Glucose - Dipstick NEGATIVE mg/dL Negative Urine Bilirubin - Dipstick NEGATIVE Negative Urine Ketone NEGATIVE mg/dL Negative Urine Specific [place] 1.010 1.010-1.030 Urine Blood NEGATIVE Negative Urine PH 6.0 Low 6.5-7.5 Urine Protein - Dipstick NEGATIVE mg/dL Negative Urine Urobilinogen - Dipstick 0.2 E.U./dL 0.2-1.0 Urine Nitrite - Dipstick NEGATIVE Negative Urine Leuk Esterase NEGATIVE Negative 1 POST OP PROBLEMS GALL BLADDER REMOVAL 2 POSSIBLE UROGENITAL CONTAMINATION. 3 URINE, CLEAN CATCH 4 Note: Persistent reduction for 3 months or more in an eGFR <60 mL/min/1.73 m2 defines CKD. Patients with eGFR values >/=60 mL/min/1.73 m2 may also have CKD if evidence of persistent proteinuria is present. The original MDRD equation for estimated GFR is not valid for patients less than 18 years of age. Additional information may be found at www.kdoqi.org. 5 Values below the stated reference ranges of AST and ALT can be seen in normal populations. Clinical correlation is suggested. 6 CONSULT 09/30/17 7 FIRST MORNING SPECIMENS GENERALLY CONTAIN THE HIGHEST CONCENTRATION OF HCG AND ARE RECOMMENDED FOR EARLY DETECTION OF . Method: Quidel QuickVue One-Step Immunoassay 8 GALL STONES? 9 Note: Persistent reduction for 3 months or more in an eGFR <60 mL/min/1.73 m2 defines CKD. Patients with eGFR values >/=60 mL/min/1.73 m2 may also have CKD if evidence of persistent proteinuria is present. The original MDRD equation for estimated GFR is not valid for patients less than 18 years of age. Additional information may be found at [email or web address]. 10 0.0 - 0.045 ng/mL: Normal 0.046 - 0.5 ng/mL: Suggestive 0.6 - 1.5 ng/mL: Consistent 11 GALL STONE IS BLOCKING 12 Note: Persistent reduction for 3 months or more in an eGFR <60 mL/min/1.73 m2 defines CKD. Patients with eGFR values >/=60 mL/min/1.73 m2 may also have CKD if evidence of persistent proteinuria is present. The original MDRD equation for estimated GFR is not valid for patients less than 18 years of age. Additional information may be found at [email or web address]. 13 NO GROWTH: FINAL REPORT 14 NO GROWTH: FINAL REPORT 15 DEHYDRATION, GALL STONE ISSUES 16 URINE, CLEAN CATCH 17 Method: [employer] One-Step Immunoassay 18 Note: Persistent reduction for 3 months or more in an eGFR <60 mL/min/1.73 m2 defines CKD. Patients with eGFR values >/=60 mL/min/1.73 m2 may also have CKD if evidence of persistent proteinuria is present. The original MDRD equation for estimated GFR is not valid for patients less than 18 years of age. Additional information may be found at [email or web address]. 19 ABD PAIN 20 Note: Persistent reduction for 3 months or more in an eGFR <60 mL/min/1.73 m2 defines CKD. Patients with eGFR values >/=60 mL/min/1.73 m2 may also have CKD if evidence of persistent proteinuria is present. The original MDRD equation for estimated GFR is not valid for patients less than 18 years of age. Additional information may be found at [email or web address]. 21 Values below the stated reference ranges of AST and ALT can be seen in normal populations. Clinical correlation is suggested. 22 ABD PAIN, NAUSEA, COLD SYMPTOMS 23 <=0.49 ug/mL - Low likelihood of DIC, DVT or Pulmonary Embolism >0.49 ug/mL - Additional testing should be done to rule out DIC, DVT, or Pulmonary embolism as clinically indicated. ([facility] has established a 97.89% negative predictive value for thrombotic disease when a cutoff value of 0.5 ug/mL is used.) 24 0.0 - 0.045 ng/mL: Normal 0.046 - 0.5 ng/mL: Suggestive 0.6 - 1.5 ng/mL: Consistent 25 Note: Persistent reduction for 3 months or more in an eGFR <60 mL/min/1.73 m2 defines CKD. Patients with eGFR values >/=60 mL/min/1.73 m2 may also have CKD if evidence of persistent proteinuria is present. The original MDRD equation for estimated GFR is not valid for patients less than 18 years of age. Additional information may be found at www.kdoqi.org. Procedures Date CPT Code Description Status 10/06/2017 53768 Cholecystectomy with cholangiography Completed 10/05/2017 23683 EKG-Tracing And Report Completed 07/20/2016 39990 EKG-Tracing And Report Completed 02/13/2010 36260 xray spine cervical min 4 views Completed 11/19/2009 89427 Radiology, Wrist Complete Completed Encounters Type Date Location Provider CPT E/M Dx Office Visit 11/22/2017 10:40a [place] [address] E66.01 M24.671 Z48.815 Office Visit 10/05/2017 2:50p Cardiology Office Neo Aaron, 67209 Z01.810 Romero, [facility] I45.6 E66.01 Office Visit 09/28/2017 2:45p Surgical Office Nathanael Cantu, 86323 K80.20 MD,FACS Office Visit 09/21/2017 3:40p [place] [address] K80.20 R03.0 N92.4 E66.01 J01.90 Office Visit 05/13/2017 8:40a [place] [address] F33.0 R03.0 N92.4 J30.9 M67.874 Office Visit 02/08/2017 8:40a [place] [address] F33.0 E66.9 R03.0 J30.9 J45.20 Office Visit 07/20/2016 1:30p [place] [address] Z01.810 I45.6 G47.33 Office Visit 07/15/2015 8:20a CITLALY Birch M.D. 56462 R19.5 R13.10 K21.9 E66.9 Office Visit 06/25/2015 1:10p [place] [address] 296.31 309.81 Office Visit 06/17/2015 9:00a Primary Care Office Yuliya Chapa M.D. 72429 530.81 296.31 611.72 278.00 716.87 493.00 V70.0 Office Visit 03/13/2010 11:15a Orthopaedic Office Romero Cho M.D., 83587 840.0 FACS 726.11 842.19 842.00 Office Visit 02/13/2010 9:30a Orthopaedic Office Romero Cho, 18978 719.41 Romero, FACS 719.42 Office Visit 01/07/2010 10:30a Orthopaedic Office Romero Cho 21039 831.04 Romero, FACS Office Visit 11/26/2009 9:30a Orthopaedic Office Romero Cho 30391 831.04 MJ Luis, FACS 726.90 842.00 Office Visit 11/19/2009 9:45a Orthopaedic Office Romero RevelesJackelin Roromatt, 08636 842.00 MJ Luis, FACS 840.9 831.04 923.00 Plan of Care Future Appointment(s):05/24/2018 10:00 am - Laurita Reyes MD at [facility] Xsuwze1401/05/2018 - Laurita Reyes, MDR10.811 Right upper quadrant abdominal tendernessNew Labs:Liver Function TestsLipaseUa RFX Micro & Culture IIUrine CultureComments:-check LFTs, lipase-CT scan of Abd to rule out bile duct stone, pancreatitis, Diverticulitis-May need GI workup-Incisions well healed-this pain is different than the post op incision pain she had -Check UA, urine culture
[2018-01-22 14:52] VITALS: BP 157/79
== END 2018-01-22 15:01 | disposition home or self-care (01) ==
LOC: UCCORT 13:56
DX: J32.9 Chronic sinusitis, unspecified (principal); Z87.891 Personal history of nicotine dependence
CPT/HCPCS: 99212; G0463

== ENCOUNTER 2019-09-17 09:04 | Emergency (ER) | payer OTHER ==
--- NOTE | 2019-09-17 10:12 | UC ---
Skin Complaint HPI - HPI Summary HPI Summary: 29-year-old female who has a history of very mild facial acne however she has started on testosterone treatments which have cystic acne as a side effect. She started experiencing a development of what she thought was a pimple and she tried to squeeze it last evening and today she has some left-sided facial pain and swelling. - History of Current Complaint Chief Complaint: UCSkin Time Seen by Provider: 09/17/19 09:58 Stated Complaint: SKIN CONCERN-FACE Hx Obtained From: Patient Hx Last Menstrual Period: 09/05/19 ?: No Onset/Duration: Gradual Onset Skin Exposure Onset/Duration: Hours Ago Timing: Constant Onset Severity: Mild Current Severity: Moderate Pain Intensity: 6 Location: Other - Left facial cheek. Character: Swelling Aggravating Factor(s): Touch Alleviating Factor(s): Nothing Associated Signs & Symptoms: Positive: Tenderness - Allergy/Home Medications Allergies/Adverse Reactions: Allergies Allergy/AdvReac Type Severity Reaction Status Date / Time seasonal Allergy Congestion Uncoded 09/17/19 09:58 Home Medications: Home Medications Metoclopramide HCl [Reglan] 5 mg PO DAILY PRN 09/17/19 [History Confirmed ] Omeprazole (Nf) [Prilosec (NF)] 40 mg PO DAILY 09/17/19 [History Confirmed 09/17] Testosterone Propionate 0.25 ml IM WEEKLY 09/17/19 [History Confirmed 09/17/19] PMH/Surg Hx/FS Hx/Imm Hx Previously Healthy: Yes Cardiovascular History: Other - PVC'S Respiratory History: Asthma - Surgical History Surgical History: Yes Surgery Procedure, Year, and Place: Arthoscopy of ankle, gallbladder removal- 2017 - Family History Known Family History: Positive: Respiratory Disease - Social History Lives: With Family Alcohol Use: Rare Substance Use Type: None Smoking Status (MU): Former Smoker Type: Cigarettes Amount Used/How Often: 4-5 cigarettes daily Length of Time of Smoking/Using Tobacco: 5 yrs Have You Smoked in the Last Year: Yes When Did the Patient Quit Smoking/Using Tobacco: March 2016 Review of Systems All Other Systems Reviewed And Are Negative: Yes Skin: Positive: Other - Patient has mild facial acne anyways however as a result of testosterone treatments she has developed some cystic acne. Is Patient Immunocompromised?: No Physical Exam Triage Information Reviewed: Yes Appearance: Well-Appearing, No Pain Distress, Well-Nourished Vital Signs: Initial Vital Signs Temp 98.1 F 09/17/19 09:52 Pulse 91 09/17/19 09:52 Resp 16 09/17/19 09:52 BP 136/77 09/17/19 09:52 Pulse Ox 98 09/17/19 09:52 Vital Signs Reviewed: Yes Eyes: Positive: Conjunctiva Clear ENT: Positive: Pharynx normal, TMs normal, Uvula midline Neck: Positive: Supple, Nontender, No Lymphadenopathy Respiratory: Positive: Lungs clear, Normal breath sounds, No respiratory distress, No accessory muscle use Cardiovascular: Positive: RRR, No Murmur, Pulses Normal, Brisk Capillary Refill Skin: Positive: Other - Patient has some mild facial acne with 2 areas of more severe acne. She has mild left facial cheek swelling but the erythema is only around the area of acne in which she tried to squeeze and express unsuccessfully. Course/Dx - Course Course Of Treatment: I advised patient not to try and squeeze any papules that develop. I'm giving her Augmentin 875 g by mouth twice a day 10 days. She is to deathly follow up either with her primary care provider or [facility] if no improvement this week however if worsening symptoms in the next 24 hours with increased facial swelling, fever and chills or unable keep medicine down she is to go to the emergency room for further treatment. - Diagnoses Provider Diagnosis: Cellulitis, face Discharge ED - Sign-Out/Discharge Documenting (check all that apply): Patient Departure All imaging exams completed and their final reports reviewed: No Studies - Discharge Plan Condition: Fair Disposition: HOME Prescriptions: Amoxicillin/Clavulanate TAB* [Augmentin TAB 875*] 875 mg PO BID 10 Days #20 tab Patient Education Materials: Cellulitis (DC) Referrals: Eda Pritchard CNM [Primary Care Provider] - [facility] [Outside] Additional Instructions: Increase fluids, take Tylenol every 4 hours and Motrin every 8 hours for pain. Take the Augmentin with food. Definite follow up at [facility] if you have no improvement or worsening symptoms over the next 4 or 5 days. - Billing Disposition and Condition Condition: FAIR Disposition: Home - Attestation Statements Provider Attestation: I was available for consult. This patient was seen by the LUCIANA. The patient was not presented to, seen by, or examined by me. -Mary Lou
[2019-09-17 10:22] VITALS: BP 136/77
== END 2019-09-17 10:19 | disposition home or self-care (01) ==
LOC: UCCORT 09:04
DX: L03.211 Cellulitis of face (principal); J45.909 Unspecified asthma, uncomplicated; Z91.09 Other allergy status, other than to drugs and biological substances; Z87.891 Personal history of nicotine dependence
CPT/HCPCS: 99212; G0463

== ENCOUNTER 2020-01-02 14:21 | Emergency (ER) | payer OTHER ==
--- OUTSIDE RECORDS SUMMARY | 2020-01-02 15:04 | XMS REPORT | Summary of Care ---
:1990 Author Organization [facility] Address [address] [place] [address] Care Team Providers Name Role Phone Eda Pritchard [facility] Primary Care Provider Reason for Referral Diagnostic Radiology (Routine) Status Reason Specialty Diagnoses / Procedures Referred By Contact Referred To Contact Open Radiology Diagnoses Chronic pain of left ankle Posterior tibial tendinitis of left lower extremity Jw Ahmadi Procedures MR Extremity Lower Joint without Contrast Left Joint, Ankle MD Rafael [address] [place] [address] Email: [email or web address] Reason for Visit Reason Comments Follow-up increased left ankle pain, ROM limited, not able to weight bear Encounter Details Date Type Department Care Team Description 12/14/2019 Office Visit [facility] OrthopedicsDaiana, Chronic pain of left ankle (Primary Dx); LLP Jw Hall MD Posterior tibial tendinitis of left lower extremity [address] [place], [place] [address] [id number] [place], [place] [phone] [address] [phone] Allergies Active Allergy Reactions Severity Noted Date Comments Propofol 07/16/2019 documented as of this encounter (statuses as of 12/24/2019) Medications Medication Sig Dispensed Refills Start End Status Date Date albuterol Inhale 2 puffs 0 Active (PROVENTIL into the lungs HFA;VENTOLIN HFA) every 4 (four) 108 (90 BASE) hours as needed MCG/ACT inhaler for Wheezing. ibuprofen Take 200 mg by 0 Active (ADVIL,MOTRIN) 200 mouth as needed MG tablet for Pain metoclopramide TK 1 T PO QD 0 09/28/20 Active (REGLAN) 10 MG 17 tablet fluoxetine (PROZAC) TK 1 C PO QD 5 09/26/20 Active 40 MG capsule 17 Testosterone INJECT 0.25 0 11/26/19 Active Cypionate 200 MG/ML MILLILITERS 20 Intramuscular INTRAMUSCULARLY Solution ONCE WEEKLY (DEPOTESTOTERONE CYPIONATE) Omeprazole 20 MG 0 Active Oral Tablet Delayed Release Disintegrating (EQ OMEPRAZOLE) Levocetirizine 0 Active Dihydrochloride 5 MG Oral Tablet (XYZAL) Glucosamine Sulfate 0 Active 500 MG Oral Tablet Flax Oil-Fish 0 Active Oil-Borage Oil Oral Capsule Vitamin D 0 08/10/20 Active (Ergocalciferol) 19 1.25 MG (07668 UT) Oral Capsule (ERGOCALCIFEROL) Cyclobenzaprine HCl TK 1 T PO TID PRF 0 12/20/19 Active 5 MG Oral Tablet MUSCLE SPASMS 19 (FLEXERIL) fluticasone SHAKE LQ AND U 1 1 02/09/20 Discontinued (FLONASE) 50 TO 2 SPRAYS IEN 17 020 (Formulary MCG/ACT nasal spray QPM change) HYDROcodone-acetami 0 10/06/20 Discontinued nophen (LORTAB) 17 020 (Formulary 5-325 MG per tablet change) documented as of this encounter (statuses as of 12/24/2019) Active Problems Problem Noted Date Left ankle pain 02/25/2016 Posterior tibial tendonitis 02/25/2016 documented as of this encounter (statuses as of 12/24/2019) Social History Tobacco Use Types Packs/Day Years Used Date Former Smoker 0.5 Quit: 08/27/2015 Smokeless Tobacco: Never Used Comments: Vape Alcohol Use Drinks/Week oz/Week Comments Yes rarely Sex Assigned at Date Recorded Not on file Job Start Date Occupation Industry Not on file Not on file Not on file Travel History Travel Start Travel End No recent travel history available. documented as of this encounter Last Filed Vital Signs Not on filedocumented in this encounter Patient Instructions Patient InstructionsSt Dominga Nunn LPN - 12/14/2019 2:20 PM ESTThe patient is instructed to call the office with any question/concerns or if symptoms worsen. documented in this encounter Progress Notes Jw Ahmadi MD - 12/14/2019 2:20 PM EST Chief Complaint: Chief Complaint Patient presents with Follow-up increased left ankle pain, ROM limited, not able to weight bear History of Present Illness: Nemo Busch "Jeff" Returns for follow-up. I have not seen him in a couple of years. He is status post posterior tibial tendon debridement, and resection of a prominent osteophyte off the tibia. He continues to complain of pain mostly medial. The pain is worsenedwith any activity. It has recently gotten worse. Has failed to respond to use of the orthotics, aswell as topical treatments. The patient's past MEDICAL/SURGICAL/SOCIAL history have been reviewed, with pertinent changes documented in the chart. ROS: Pertinent positives as above in the HPI, all other systems negative. Physical Exam: There were no vitals taken for this visit. General: AAOx3, NAD Left Foot/Ankle: The ankle appears well aligned. Moderate pes planus noted. Positive tendernessover the posterior tibial tendon. 4-5 inversion strength. Imaging: Weightbearing radiographs were reviewed with the patient in clinic today on the desktop computer. Findings reveal Pes planus. No changes compared to prior films. Assessment: 1. Chronic left medial ankle pain, with pes planus 2. Status post posterior tibial tendon debridement Plan: Jeff is struggling substantially. We discussed treatment options. I would like to get further information, prior to proceeding with any further treatment. I think that an MRI would best, given the likely soft tissue nature. Follow-Up: After MRI Xrays next visit: None Orders Placed This Encounter XR Foot 3 or More Views Left XR Ankle 2 Views Left MR Extremity Lower Joint without Contrast Left Joint, Ankle CC: Eda Pritchard CNM This document was dictated using Yext software. A reasonable attempt at proof reading has been made to minimize errors. Please call our office if you have any questions. documented in this encounter Plan of Treatment Name Type Priority Associated Diagnoses Order Schedule MR Extremity Lower Imaging Routine Chronic pain of left Expected: 2019, Joint without Contrast ankle Expires: 03/13/2021 Left Joint, Ankle Posterior tibial tendinitis of left lower extremity Health Maintenance Due Date Last Done Comments MMR Vaccines (1 of 1 - Standard 1992 series) Varicella Vaccines (1 of 2 - 1992 2-dose childhood series) DTaP,Tdap,and Td Vaccines (1 - 1998 Tdap) HIV Screening 2004 Cervical Cancer Screening 3 years 2012 Influenza Vaccine 07/31/2019 Pneumococcal Vaccine: 65+ Years (1 2056 of 2 - PCV13) HIB Vaccines Aged Out No longer eligible based on patient's age to complete this topic Hepatitis A Vaccines Aged Out No longer eligible based on patient's age to complete this topic Hepatitis B Vaccines Aged Out No longer eligible based on patient's age to complete this topic IPV Vaccines Aged Out No longer eligible based on patient's age to complete this topic Pneumococcal Vaccine: Pediatrics Aged Out No longer eligible based on (0 to 5 Years) and At-Risk patient's age to complete this Patients (6 to 64 Years) topic documented as of this encounter Implants Implanted Type Area [facility] Device Shelf Model / Identifier Expiration Date Serial / Lot [employer]i Kimball #0 [id number] - [id number] Left: Ankle ARTHREX 04/29/2017 [id number] / Implanted: Qty: 1 on 08/24/2016 by Jw Ahmadi MD at OR / [id number] documented as of this encounter Results XR Ankle 2 Views Left (12/14/2019 2:56 PM EST) Specimen Impressions Performed At IMPRESSION: Slight lucency rounded in appearance projected over the [facility] dome of the talus laterally which may represent an osteochondral defect. This is slightly more prominent than on the previous exam. Otherwise I see no acute osseous abnormality and no other significant change from 07/15/2017. If clinically indicated, MRI examination may help to further evaluate. Narrative Performed At Left ankle, left foot [facility] INDICATION: Pain FINDINGS: Frontal and internal oblique view of the left ankle was obtained. Along with 3 views of the left foot. Examination of the left ankle again demonstrates fixation device involving the medial malleolus unchanged. There is very minimal cortical thickening involving the medial malleolus medially which was present on the prior study. The ankle mortise appears intact. There is a small lucency projected over the dome of the talus laterally which may represent a small osteochondral defect. This appears to have been present on the prior study although slightly more prominent. There is soft tissue prominence about the ankle. There is mild amount of ankle joint fluid present. There is mild arthritic change involving the talonavicular joint unchanged. The remainder of the examination is unremarkable. Procedure Note Interface, Received Via flipClass - 12/15/2019 9:07 AM EST Left ankle, left foot INDICATION: Pain FINDINGS: Frontal and internal oblique view of the left ankle was obtained. Along with 3 views of the left foot. Examination of the left ankle again demonstrates fixation device involving the medial malleolus unchanged. There is very minimal cortical thickening involving the medial malleolus medially which was present on the prior study. The ankle mortise appears intact. There is a small lucency projected over the dome of the talus laterally which may represent a small osteochondral defect. This appears to have been present on the prior study although slightly more prominent. There is soft tissue prominence about the ankle. There is mild amount of ankle joint fluid present. There is mild arthritic change involving the talonavicular joint unchanged. The remainder of the examination is unremarkable. IMPRESSION: Slight lucency rounded in appearance projected over the dome of the talus laterally which may represent an osteochondral defect. This is slightly more prominent than on the previous exam. Otherwise I see no acute osseous abnormality and no other significant change from 07/15/2017. If clinically indicated, MRI examination may help to further evaluate. Performing Organization Address City/State/Zipcode Phone Number [facility] [address] [place] [address] XR Foot 3 or More Views Left (12/14/2019 2:55 PM EST) Specimen Impressions Performed At IMPRESSION: Slight lucency rounded in appearance projected over the [facility] dome of the talus laterally which may represent an osteochondral defect. This is slightly more prominent than on the previous exam. Otherwise I see no acute osseous abnormality and no other significant change from 07/15/2017. If clinically indicated, MRI examination may help to further evaluate. Narrative Performed At Left ankle, left foot [facility] INDICATION: Pain FINDINGS: Frontal and internal oblique view of the left ankle was obtained. Along with 3 views of the left foot. Examination of the left ankle again demonstrates fixation device involving the medial malleolus unchanged. There is very minimal cortical thickening involving the medial malleolus medially which was present on the prior study. The ankle mortise appears intact. There is a small lucency projected over the dome of the talus laterally which may represent a small osteochondral defect. This appears to have been present on the prior study although slightly more prominent. There is soft tissue prominence about the ankle. There is mild amount of ankle joint fluid present. There is mild arthritic change involving the talonavicular joint unchanged. The remainder of the examination is unremarkable. Procedure Note Interface, Received Via flipClass - 12/15/2019 9:07 AM EST Left ankle, left foot INDICATION: Pain FINDINGS: Frontal and internal oblique view of the left ankle was obtained. Along with 3 views of the left foot. Examination of the left ankle again demonstrates fixation device involving the medial malleolus unchanged. There is very minimal cortical thickening involving the medial malleolus medially which was present on the prior study. The ankle mortise appears intact. There is a small lucency projected over the dome of the talus laterally which may represent a small osteochondral defect. This appears to have been present on the prior study although slightly more prominent. There is soft tissue prominence about the ankle. There is mild amount of ankle joint fluid present. There is mild arthritic change involving the talonavicular joint unchanged. The remainder of the examination is unremarkable. IMPRESSION: Slight lucency rounded in appearance projected over the dome of the talus laterally which may represent an osteochondral defect. This is slightly more prominent than on the previous exam. Otherwise I see no acute osseous abnormality and no other significant change from 07/15/2017. If clinically indicated, MRI examination may help to further evaluate. Performing Organization Address City/State/Zipcode Phone Number [facility] [address] [place] [address] documented in this encounter Visit Diagnoses Diagnosis Chronic pain of left ankle - Primary Posterior tibial tendinitis of left lower extremity documented in this encounter
--- OUTSIDE RECORDS SUMMARY | 2020-01-02 15:04 | XMS REPORT | Summary of Care ---
:1990 Author Organization [facility] Address [address] [place] [address] Care Team Providers Name Role Phone Eda Pritchard [facility] Primary Care Provider Reason for Referral Used Durable Medical Equipment (Routine) Status Reason Specialty Diagnoses / Procedures Referred By Contact Referred To Contact Denied Diagnoses Osteochondral defect of talus Jw Ahmadi MD [address] [place] [address] Email: [email or web address] Scheduling Instructions [id number] Cam Boot Walking - Tall Reason for Visit Reason Comments Follow-up 1.Chronic left medial ankle pain, with pes planus, follow up MRI Encounter Details Date Type Department Care Team Description 12/28/2019 Office Visit Catarina AndersonsDaiana, Osteochondral defect of [facility] Jw Hall MD talus (Primary Dx) [address] [facility] [address] [facility] [address] [place] [address] [phone] Allergies Active Allergy Reactions Severity Noted Date Comments Propofol 07/16/2019 documented as of this encounter (statuses as of 12/28/2019) Medications Medication Sig Dispensed Refills Start Date End Date Status albuterol (PROVENTIL Inhale 2 puffs into 0 Active HFA;VENTOLIN HFA) 108 the lungs every 4 (90 BASE) MCG/ACT (four) hours as inhaler needed for Wheezing. ibuprofen Take 200 mg by mouth 0 Active (ADVIL,MOTRIN) 200 MG as needed for Pain tablet metoclopramide TK 1 T PO QD 0 09/28/2017 Active (REGLAN) 10 MG tablet fluoxetine (PROZAC) TK 1 C PO QD 5 09/26/2017 Active 40 MG capsule Testosterone INJECT 0.25 0 11/26/2019 Active Cypionate 200 MG/ML MILLILITERS Intramuscular INTRAMUSCULARLY ONCE Solution WEEKLY (DEPOTESTOTERONE CYPIONATE) Omeprazole 20 MG Oral 0 Active Tablet Delayed Release Disintegrating (EQ OMEPRAZOLE) Levocetirizine 0 Active Dihydrochloride 5 MG Oral Tablet (XYZAL) Glucosamine Sulfate 0 Active 500 MG Oral Tablet Flax Oil-Fish 0 Active Oil-Borage Oil Oral Capsule Vitamin D 0 08/10/2019 Active (Ergocalciferol) 1.25 MG (70079 UT) Oral Capsule (ERGOCALCIFEROL) Cyclobenzaprine HCl 5 TK 1 T PO TID PRF 0 12/20/2018 Active MG Oral Tablet MUSCLE SPASMS (FLEXERIL) Hospital, Clinic, or Other Ordered Dose Route Frequency Start Date End Date Status Facility Administered Medication methylPREDNISolone acetate 40 mg IX Once 12/28/2019 01/27/2020 Active (DEPO-MEDROL) injection 40 mg documented as of this encounter (statuses as of 12/28/2019) Active Problems Problem Noted Date Left ankle pain 02/25/2016 Posterior tibial tendonitis 02/25/2016 documented as of this encounter (statuses as of 12/28/2019) Social History Tobacco Use Types Packs/Day Years [...] filedocumented in this encounter Patient Instructions Patient InstructionsDNimisha Paez LPN - 12/28/2019 1:00 PM ESTThe patient is instructed to call the office with any question/concerns or if symptoms worsen. The information below is for our patients who have received an injection in our office. Medications used in your injection today included: Lidocaine (a shorter acting anesthetic) Depo-Medrol (a long acting form of cortisone/ steroid) The injection you have just received normally goes without incident. The injection area may be sore,throbbing or slightly swollen for one to two days. Unless your doctor tells you otherwise, applyingice to the area (10 to 15 minutes every one to two hours) for the first day or two will help decrease the pain. In addition, you may benefit from taking acetaminophen (Tylenol), or Ibuprofen (Motrin) to help reduce the pain. Usually a numbing medication is given with the injection, which can last for 1-2 hours. The actual Cortisone may take up to 1-2 weeks to take effect. If you develop any abnormal symptoms, such as itching, swelling, redness, rash, or shortness of breath, please call our office. Normally, these are temporary symptoms which resolve within a day but we are more than happy to answerany questions you may have. Diabetic Warning: If you are diabetic and using insulin, this injection may elevate your blood sugar for the next one to five days. Please monitor your sugars closely and if they fail to return to acceptable levels, please contact your primary care physician. documented in this encounter Progress Notes Jw Ahmadi MD - 12/28/2019 1:00 PM EST Chief Complaint: Chief Complaint Patient presents with Follow-up 1.Chronic left medial ankle pain, with pes planus, follow up MRI History of Present Illness: Nemo Busch Returns for follow-up of his left ankle. He noted a substantial increase in discomfort about 2 days ago. No specific injury, however had noted pain along the medial aspect of his ankle. It is worse with activity. No mechanical symptoms as of yet. The patient's past MEDICAL/SURGICAL/SOCIAL history have been reviewed, with pertinent changes documented in the chart. ROS: Pertinent positives as above in the HPI, all other systems negative. Physical Exam: There were no vitals taken for this visit. General: AAOx3, NAD Left Foot/Ankle: Moderate swelling. Incision is well-healed. No crepitus. Imaging: Weightbearing radiographs were reviewed with the patient in clinic today on the desktop computer. The MRI images were reviewed with the patient in the exam room setting, in detail. We reviewed multiple imaging planes, as well as multiple sequences in detail. There is moderate signal change along the medial shoulder of the talus. Consistent with osteochondral defect. Assessment: 1. Osteochondral lesion left talus Plan: The diagnosis of osteochondral lesion of the talus (OLT) was discussed at length with the patient. I explained, that it was a condition that affected both the overlying cartilage surface of the talus, as well as the bone underneath. As many as 85%, occur after traumatic injury, however some occur idiopathically. We discussed the natural history of the disorder, with some improving on their own, and others causing persistent pain and mechanical symptoms. Depending upon some parameters such as size, and stability, following a period of nonoperative management, typically it may be reasonable to consider surgical intervention. We will plan to undergo a period of rest, with or without a cortisone injection. The patient will be fitted with A Cam boot as well to minimize stresses on the ankle joint. Brief Procedure: Left Ankle (Tibiotalar) Joint Injection Following a full disclosure of the risks associated with intra-articular cortisone injection, which include but are not limited to infection and tendon rupture, the patient provided verbal consent an intra-articular injection to the left ankle. The Left ankle was sterilely prepped in normal fashion by the nursing staff. Utilizing aseptic technique, 40 mg of Depo-Medrol and 1 cc of 1% lidocaine were injected from a anteromedial approach into the tibiotalar joint. Following the injection, a sterile bandage was placed over the injection site. The patient tolerated the procedure well without any bleeding or any complication and ambulated out of clinic under their own power. The patient was instructed to call the office with any questions/concerns or if symptoms worsen. Follow-Up: 5 weeks Xrays next visit: none Orders Placed This Encounter REFERRAL TO DME, EXTERNAL ONLY NE ARTHROCENTESIS ASPIR&/INJ INTERM JT/BURS W/O US methylPREDNISolone acetate (DEPO-MEDROL) injection 40 mg CC: Eda Pritchard CNM This document was dictated using [employer] software. A reasonable attempt at proof reading has been made to minimize errors. Please call our office if you have any questions. documented in this encounter Plan of Treatment Date Type Specialty Care Team Description 02/01/2020 Office Visit Orthopedic Surgery Jw Ahmadi MD [address] [place] [address] [phone] Name Type Priority Associated Diagnoses Order Schedule REFERRAL TO DME, Outpatient Referral Routine Osteochondral defect Ordered: EXTERNAL ONLY of talus 12/28/2019 Health Maintenance Due Date Last Done Comments Varicella Vaccines (1 of 2 03/13/1996 - 2-dose childhood series) HIV Screening 2004 Cervical Cancer Screening 3 2012 years DTaP,Tdap,and Td Vaccines 06/23/2017 06/23/2007, 06/06/2003, (7 - Td) 02/14/1996, Additional history exists Influenza Vaccine 07/31/2019 Pneumococcal Vaccine: 65+ 2056 Years (1 of 2 - PCV13) IPV Vaccines Completed 02/14/1996, 10/09/1992, 1991, Additional history exists MMR Vaccines Completed 02/14/1996, 08/01/1992 Hepatitis B Vaccines Completed 11/10/1999, 09/23/1998, 08/19/1998 HIB Vaccines Aged Out No longer eligible based on patient's age to complete this topic Hepatitis A Vaccines Aged Out No longer eligible based on patient's age to complete this topic Pneumococcal Vaccine: Aged Out No longer eligible Pediatrics (0 to 5 Years) based on patient's age and At-Risk Patients (6 to to complete this topic 64 Years) documented as of this encounter Implants Implanted Type Area Java Engineer Device Shelf Model / Identifier Expiration Date Serial / Lot [place] [employer]ball #0 [id number] - [id number] Left: Ankle ARTHREX 04/29/2017 [id number] / Implanted: Qty: 1 on 08/24/2016 by Jw Ahmadi MD at OR / [id number] documented as of this encounter Results Not on filedocumented in this encounter Visit Diagnoses Diagnosis Osteochondral defect of talus - Primary Acquired musculoskeletal deformity of other specified site documented in this encounter
[2020-01-02 15:12] VITALS: BP 138/91
--- NOTE | 2020-01-02 15:23 | UC ---
Throat Pain/Nasal Gurdeep HPI - HPI Summary HPI Summary: 29 yo female with a 2 week hx of nasal congestion/post nasal drip/facial pressure/upper dental pain and cough no f/c + right otalgia request no amoxicillin due to diarrhea side effect - History of Current Complaint Chief Complaint: UCGeneralIllness Stated Complaint: SINUS COMPLAINT Hx Obtained From: Patient Hx Last Menstrual Period: 09/05/19 Onset/Duration: Gradual Onset, Lasting Weeks - 2 Severity: Mild Pain Intensity: 4 Pain Scale Used: 0-10 Numeric Cough: Nonproductive Associated Signs & Symptoms: Positive: Sinus Discomfort, Nasal Discharge. Negative: Dysphagia, FB Sensation, Drooling, Wheezing, Hoarseness, Fever, Vomiting, Rash - Epiglottits Risk Factors Epiglottis Risk Factors: Negative - Allergies/Home Medications Allergies/Adverse Reactions: Allergies Allergy/AdvReac Type Severity Reaction Status Date / Time propofol AdvReac See Comment Verified 01/02/20 15:06 seasonal Allergy Congestion Uncoded 01/02/20 15:06 Home Medications: Home Medications Albuterol HFA INHALER* [Ventolin HFA Inhaler*] 1 - 2 puff INH Q4H PRN #1 mdi 05/15 [Rx Confirmed 01/02/20] FLUoxetine CAP* [Prozac CAP*] 40 mg PO DAILY 08/06/16 [History Confirmed ] Metoclopramide HCl [Reglan] 5 mg PO DAILY PRN 09/17/19 [History Confirmed ] Omeprazole (Nf) [Prilosec (NF)] 40 mg PO DAILY 09/17/19 [History Confirmed 01/01] Testosterone Propionate 0.25 ml IM WEEKLY 09/17/19 [History Confirmed 01/02/20] DOXYcycline CAP(*) [DOXYcycline 100MG CAP(*)] 100 mg PO BID #14 cap 01/02/20 [Rx ] Fluticasone NASAL SPRAY 50MCG* [Flonase NASAL SPRAY 50MCG*] 2 spray BOTH NARES BID #1 btl 01/02/20 [Rx] LevoCETirizine TAB (NF) [Xyzal TAB (NF)] 1 dose PO ONCE 01/02/20 [History Confirmed 01/02/20] PMH/Surg Hx/FS Hx/Imm Hx Previously Healthy: Yes GI/ History: Gastroesophageal Reflux - Surgical History Surgical History: Yes Surgery Procedure, Year, and Place: Arthoscopy of ankle. cholecystectomy 2017. upper endoscopy March 2019 - Family History Known Family History: Positive: Hypertension, Respiratory Disease - Social History Alcohol Use: Occasionally Substance Use Type: None Smoking Status (MU): Former Smoker Type: eCigarettes Amount Used/How Often: 4-5 cigarettes daily Length of Time of Smoking/Using Tobacco: 5 yrs Have You Smoked in the Last Year: Yes When Did the Patient Quit Smoking/Using Tobacco: March 2016 Review of Systems All Other Systems Reviewed And Are Negative: Yes Constitutional: Positive: Negative Skin: Positive: Negative Eyes: Positive: Negative ENT: Positive: Dental Pain, Ear Ache, Nasal Discharge, Sinus Congestion, Sinus Pain/Tenderness Respiratory: Positive: Cough Cardiovascular: Positive: Negative Gastrointestinal: Positive: Negative Genitourinary: Positive: Negative Motor: Positive: Negative Neurovascular: Positive: Negative Musculoskeletal: Positive: Negative Neurological/Mental Status: Positive: Negative Psychological: Positive: Negative Physical Exam Triage Information Reviewed: Yes Appearance: Well-Appearing, No Pain Distress, Well-Nourished Vital Signs: Initial Vital Signs Temp 98.2 F 01/02/20 15:07 Pulse 75 01/02/20 15:07 Resp 18 01/02/20 15:07 BP 138/91 01/02/20 15:07 Pulse Ox 98 01/02/20 15:07 Vital Signs Reviewed: Yes Eyes: Positive: Conjunctiva Clear ENT: Positive: Hearing grossly normal, Nasal congestion, Nasal drainage, Sinus tenderness, Uvula midline. Negative: TMs normal - right retracted, Tonsillar swelling, Tonsillar exudate, Trismus, Hoarse voice, Dental tenderness Dental Exam: Normal Neck: Positive: Supple, Nontender, No Lymphadenopathy Respiratory: Positive: Lungs clear, Normal breath sounds, No respiratory distress, No accessory muscle use Cardiovascular: Positive: RRR, No Murmur Musculoskeletal: Positive: ROM Intact, No Edema Neurological: Positive: Alert Psychological Exam: Normal Skin Exam: Other - acne Throat Pain/Nasal Course/Dx - Differential Dx/Diagnosis Provider Diagnosis: Sinusitis Discharge ED - Sign-Out/Discharge Documenting (check all that apply): Patient Departure All imaging exams completed and their final reports reviewed: No Studies - Discharge Plan Condition: Stable Disposition: HOME Prescriptions: DOXYcycline CAP(*) [DOXYcycline 100MG CAP(*)] 100 mg PO BID #14 cap Fluticasone NASAL SPRAY 50MCG* [Flonase NASAL SPRAY 50MCG*] 2 spray BOTH NARES BID #1 btl Patient Education Materials: Sinusitis (ED) Referrals: Eda Pritchard CNM [Primary Care Provider] - 5 Days (if not better) Additional Instructions: use your saline nasal spray warm facial compresses - Billing Disposition and Condition Condition: STABLE Disposition: Home
== END 2020-01-02 15:30 | disposition home or self-care (01) ==
LOC: UCCORT 14:21
DX: J32.9 Chronic sinusitis, unspecified (principal); K21.9 Gastro-esophageal reflux disease without esophagitis; K08.89 Other specified disorders of teeth and supporting structures; H92.09 Otalgia, unspecified ear; R05 Cough; Z79.899 Other long term (current) drug therapy; Z87.891 Personal history of nicotine dependence; Z91.09 Other allergy status, other than to drugs and biological substances; Z88.8 Allergy status to other drugs, medicaments and biological substances
CPT/HCPCS: 99212; G0463